=== PATIENT | female | born 1980 | race Caucasian/White ===

== ENCOUNTER 2020-07-21 11:51 | Outpatient (CLI) | payer OTHER, SELFPAY ==
[2020-07-21 12:07] LABS: Basophils Absolute Auto 0.04 K/mm3 (0.00-0.10); Basophils Percent Auto 0.4 % (0.0-1.0); Eosinophils Absolute Auto 0.33 K/mm3 (0.02-0.50); Eosinophils Percent Auto 3.7 % (1.0-6.0); Hematocrit 41.2 % (35.0-49.0); Hemoglobin 13.9 g/dL (12.0-15.0); Immature Granulocyte Absolute 0.03 K/mm3 (0.00-0.00); Immature Granulocyte Percent A 0.3 % (0.0-0.0); Lymphocytes Absolute Auto 2.14 K/mm3 (1.10-4.50); Mean Corpuscular HGB Conc 33.7 g/dL (32.0-36.0); Mean Corpuscular Hemoglobin 30.9 pg (27.0-31.0); Mean Corpuscular Volume 91.6 fL (78.0-102.0); Mean Platelet Volume 9.3 fl (9.2-11.8); Monocytes Absolute Auto 0.54 K/mm3 (0.10-0.90); Neutrophils Absolute Auto 5.9 K/mm3 (1.7-7.2); Neutrophils Percent Auto 65.6 % (50.0-70.0); Platelet Count Result 247 K/mm3 (150-420); Red Cell Distribution Width 11.9 % (11.6-14.4); White Blood Count 8.9 K/mm3 (4.8-10.8)
[2020-07-21 12:08] LABS: Add Urine Microscopic? NO; Appearance Urine Clear (Clear); Bilirubin Urine Negative (Negative); Blood Urine Negative (Negative); Color Urine Yellow (Yellow); Glucose Urine UA Negative (Negative); Ketones Urine Negative (Negative); Leukocyte Esterase Ur Negative (Negative); Nitrate Urine Negative (Negative); Protein Urine Negative (Negative); Specific Grav Ur 1.025 (1.010-1.020); Urobilinogen Urine 0.2 mg/dL (0.2-1.0)
[2020-07-21 13:08] LABS: Erythrocyte Sedimentation Rate 18 mm/hr (0-15)
[2020-07-21 13:31] LABS: Alanine Aminotransferase 30 U/L (14-59); Albumin Level 4.2 g/dL (3.4-5.0); Alkaline Phosphatase 88 U/L (46-116); Anion Gap 10 mmol/L (8-16); Aspartate Amino Transferase 14 U/L (15-37); Bilirubin,Total 0.2 mg/dL (0.00-1.00); Blood Urea Nitrogen 9 mg/dL (7-18); Calcium 9.1 mg/dL (8.5-10.1); Carbon Dioxide 26 mmol/L (21-32); Chloride 102 mmol/L (98-108); Cholesterol 165 mg/dL (0-200); Estimated Glomerular Filt Rate > 60; Ferritin 188 ng/mL (8-252); Free T4 Free Thyroxine 1.05 ng/dL (0.76-1.46); Glucose 95 mg/dL (70-99); HDL Direct 36 mg/dL (40-60); Iron 65 ug/dL (50-170); LDL Cholesterol Calculated 103 mg/dL (<130); Osmolality Calculated 284 mOsm/kg (285-295); Percent Iron Saturation 22 % (12-57); Potassium 4.2 mmol/L (3.5-5.1); Sodium 138 mmol/L (136-145); Total Protein 7.3 g/dL (6.4-8.2); Triglycerides 130 mg/dL (0-150)
== END 2020-07-21 11:52 | disposition home or self-care (01) ==
LOC: CHSLAB 11:54
PROVIDERS: PCP Internal Medicine; Visit Provider Internal Medicine
DX: R10.32 Left lower quadrant pain (principal); Z00.00 Encounter for general adult medical examination without abnormal findings; K92.1 Melena
CPT/HCPCS: 36415; 80053; 80061; 81003; 82728; 83540; 83550; 84439; 84443; 85025; 85652

== ENCOUNTER 2020-07-22 07:31 | Outpatient (CLI) | payer OTHER, SELFPAY ==
--- NOTE | ~2020-07-22 | CT_ITS ---
EXAMINATION: CT abdomen pelvis w con DATE: 07/22/2020 08:05 INDICATION: Left lower quadrant pain for one week TECHNIQUE: Computed tomography (CT) of the abdomen and pelvis was performed with 100 cc Omnipaque 350 intravenous contrast. The dose-length product was 696.04 mGy-cm. Automated exposure control and iter ative reconstruction technique were employed. COMPARISON: None. FINDINGS: There is right middle lobe atelectasis. Heart size normal. No significant pleural or perica rdial effusion. Gallbladder is present. The liver, spleen, adrenal glands and kidneys are unremarkabl e. There is a fat-containing umbilical hernia. Bowel pattern is nonobstructive. IUD present in the en dometrium. Trace free fluid in the pelvis. Normal appendix. No evidence for diverticulitis. No free a ir. There is disc narrowing and endplate degenerative change at L5-S1. IMPRESSION: 1. No acute abdominal abnormality. 2: Fat-containing umbilical hernia. Reviewed, dictated and finalized at location A. STANT STORE MANAGER TRAINEE
== END 2020-07-22 07:32 | disposition home or self-care (01) ==
LOC: CHSIMG 07:33
PROVIDERS: PCP Internal Medicine; Visit Provider Internal Medicine
DX: K92.1 Melena (principal); R10.32 Left lower quadrant pain
CPT/HCPCS: 74177; Q9965

== ENCOUNTER 2020-07-27 12:07 | Outpatient (CLI) | payer OTHER, SELFPAY ==
[2020-07-27 13:28] LABS: SARS-CoV-2 Ag Positive (Negative)
== END 2020-07-27 12:08 | disposition home or self-care (01) ==
LOC: CHSLAB 12:10
PROVIDERS: PCP Internal Medicine; Visit Provider Internal Medicine
DX: U07.1 COVID-19 (principal)
CPT/HCPCS: 87426

== ENCOUNTER 2021-05-26 16:03 | Outpatient (RCR) | payer OTHER, SELFPAY ==
--- NOTE | 2021-05-26 16:51 | PTOPEVAL ---
Thank you for referring Melanie Figueroa to [facility].? The patient is scheduled to be seen for therapy? __2__x/week for 12 visits. Please review, sign, date and return this plan of care PETE. I agree with and certify that the following plan of care is medically necessary. Referring Physician Date Admitting Provider: Attending Provider: Karen Casiano MD Referring Provider: *PT Outpatient Evaluation Start: 05/26/21 16:12 Freq: Status: Active Protocol: Document 05/26/21 16:12 ISIDRA (Rec: 05/26/21 16:50 ISIDRA [id number]) Therapy Assessment Status Assessment Status Assessment Status Evaluation Outpatient Past Medical History Neurological History Hx Other Neurological Disorders Yes: MENINGITIS Other History Hx Other Medical Conditions Yes: EHRLICHIOSIS Evaluation Information Problem Diagnosis acute low back pain Onset 05/21/21 Subjective Information Pt. reports she developed low Query Text:As Reported By Patient/ back pain around the 05/21/21. Family She states that she was running after her son and placed weight on the right leg and had immediate back pain. Pt. reports that she recieved a shot from the doctor and did 2 day of prednisone to reduce pain. Pt. reports pain is noticable with sitting in the car or laying in bed. she reports pain is eased with walking. She reports that she has returned to work. She reports that her goal is to decrease her back pain. Pain Assessment Timing of Pain Assessment Timing of Pain Assessment Pre-Treatment Pain Scale Pain Scale Used Numeric (1 - 10) Self Report Pain Assessment Right Lower Back Reported Pain Level 2 Pain Description Aching Pain Frequency Intermittent Lowest Pain Intensity 0 Greatest Pain Intensity 10 Pain Aggravating Factors Prolonged Position,Sitting Pain Score Pain Score 2: Self Report Interventions Used Interventions Used By Clinicians Electrical Stimulation, Exercise,Heat Cervical and Lumbar ROM Lumbar ROM Lumbar Flexion Active Floor Query Text:Hands to: Lumbar Extension (0-40) 25 Query Text:Active in Degrees Lumbar Lateral Flexion Right (0-40) 35 Query Text:Active in Degrees Lumbar Lateral Flexion Left (0-40) 35 Quer
== END 2021-06-28 23:59 | disposition home or self-care (01) ==
LOC: CHSPT 16:03
PROVIDERS: PCP Internal Medicine; Visit Provider Internal Medicine
DX: M54.5 Low back pain (principal)
CPT/HCPCS: 97014; 97110; 97161; G0283

== ENCOUNTER 2021-12-20 09:17 | Outpatient (CLI) | payer OTHER, SELFPAY ==
--- NOTE | ~2021-12-20 | XR_ITS ---
XR foot RT min 3V DATE: 12/20/2021 13:52 INDICATION: Foot pain, plantar fasciitis 2 months TECHNIQUE: Standing three-view examination COMPARISON: None FINDINGS: No fracture or dislocation, periosteal reaction or bone destruction. Joint spaces are well preserved. Mild plantar calcaneal enthesopathy. No associated periostitis or erosive change. IMPRESSION: Mild plantar calcaneal enthesopathy Reviewed, dictated and finalized at location A.
--- NOTE | ~2021-12-20 | XR_ITS ---
XR foot LT min 3V DATE: 12/20/2021 13:52 INDICATION: Plantar fasciitis, pain TECHNIQUE: Standing three-view examination COMPARISON: None FINDINGS: No fracture or dislocation, periosteal reaction or bone destruction, erosive change. IMPRESSION: Negative Reviewed, dictated and finalized at location A. IMPRESSION: Negative
== END 2021-12-20 09:18 | disposition home or self-care (01) ==
LOC: CHSIMG 09:19
PROVIDERS: PCP Internal Medicine; Visit Provider Podiatrist
DX: M72.2 Plantar fascial fibromatosis (principal)
CPT/HCPCS: 73630

== ENCOUNTER 2022-11-04 07:56 | Outpatient (CLI) | payer OTHER, SELFPAY ==
[2022-11-04 08:37] LABS: Basophils Absolute Auto 0.06 K/mm3 (0.00-0.10); Eosinophils Absolute Auto 0.28 K/mm3 (0.02-0.50); Eosinophils Percent Auto 4.8 % (1.0-6.0); Hematocrit 42.3 % (35.0-49.0); Immature Granulocyte Absolute 0.01 K/mm3 (0.00-0.00); Immature Granulocyte Percent A 0.2 % (0.0-0.0); Lymphocytes Absolute Auto 2.03 K/mm3 (1.10-4.50); Lymphocytes Percent Auto 35.1 % (18.0-42.0); Mean Corpuscular HGB Conc 33.1 g/dL (32.0-36.0); Mean Corpuscular Hemoglobin 30.7 pg (27.0-31.0); Mean Corpuscular Volume 92.8 fL (78.0-102.0); Mean Platelet Volume 9.6 fl (9.2-11.8); Monocytes Absolute Auto 0.45 K/mm3 (0.10-0.90); Monocytes Percent Auto 7.8 % (2.0-11.0); Neutrophils Percent Auto 51.1 % (50.0-70.0); Platelet Count Result 246 K/mm3 (150-420); Red Blood Count 4.56 M/mm3 (4.20-5.40); Red Cell Distribution Width 12.2 % (11.6-14.4); White Blood Count 5.8 K/mm3 (4.8-10.8)
[2022-11-04 09:20] LABS: Alanine Aminotransferase 21 U/L (14-59); Alkaline Phosphatase 83 U/L (46-116); Anion Gap 6 mmol/L (8-16); Aspartate Amino Transferase 18 U/L (15-37); Bilirubin,Total 0.4 mg/dL (0.00-1.00); Blood Urea Nitrogen 13 mg/dL (7-18); Calcium 8.9 mg/dL (8.5-10.1); Carbon Dioxide 30 mmol/L (21-32); Chloride 104 mmol/L (98-108); Cholesterol 169 mg/dL (0-200); Estimated Glomerular Filt Rate > 60; Glucose 104 mg/dL (70-99); HDL Direct 40 mg/dL (40-60); LDL Cholesterol Calculated 108 mg/dL (<130); Osmolality Calculated 290 mOsm/kg (285-295); Potassium 4.4 mmol/L (3.5-5.1); Sodium 140 mmol/L (136-145); Total Protein 7.1 g/dL (6.4-8.2); Triglycerides 104 mg/dL (0-150)
== END 2022-11-04 07:57 | disposition home or self-care (01) ==
PROVIDERS: PCP Internal Medicine
DX: Z13.9 Encounter for screening, unspecified (principal)
CPT/HCPCS: 36415; 80053; 80061; 84443; 85025

== ENCOUNTER 2024-05-16 08:33 | Outpatient (CLI) | payer OTHER, SELFPAY ==
[2024-05-16 08:52] LABS: Hematocrit 40.6 % (35.0-49.0); Mean Corpuscular HGB Conc 34.5 g/dL (32-36); Mean Platelet Volume 9.2 fl (9.2-11.8); Platelet Count Result 231 K/mm3 (150-420); Red Blood Count 4.51 M/mm3 (4.20-5.40); Red Cell Distribution Width 12.5 % (11.6-14.4); White Blood Count 6.6 K/mm3 (4.8-10.8)
[2024-05-16 08:58] LABS: Creatinine Urine 217.27 mg/dL (40-278); MALB Creatinine Ratio 6.5 mg/g (0-30); Microalbumin Urine Random 14.3 mg/L
[2024-05-16 09:01] LABS: Hemoglobin A1C 5.1 % (<5.7)
[2024-05-16 09:33] LABS: Anion Gap 9 mmol/L (4-12); Blood Urea Nitrogen 12 mg/dL (7-18); Calcium 8.7 mg/dL (8.5-10.1); Carbon Dioxide 27 mmol/L (21-32); Chloride 101 mmol/L (98-108); Estimated Glomerular Filt Rate > 60; Glucose 106 mg/dL (70-99); Osmolality Calculated 283 mOsm/kg (285-295); Potassium 4.3 mmol/L (3.5-5.1); Sodium 137 mmol/L (136-145)
[2024-05-16 09:34] LABS: Alanine Aminotransferase 34 U/L (14-59); Albumin Level 3.9 g/dL (3.4-5.0); Alkaline Phosphatase 86 U/L (46-116); Aspartate Amino Transferase 20 U/L (15-37); Bilirubin,Total 0.4 mg/dL (0.00-1.00); Cholesterol 193 mg/dL (0-200); Free T3 3.22 pg/mL (2.18-3.98); Free T4 Free Thyroxine 0.98 ng/dL (0.76-1.46); HDL Direct 39 mg/dL (40-60); LDL Cholesterol Calculated 128 mg/dL (<130); Thyroid Stimulating Hormone 0.74 uIU/mL (0.36-3.74); Total Protein 6.7 g/dL (6.4-8.2); Triglycerides 130 mg/dL (0-150)
== END 2024-05-16 08:34 | disposition home or self-care (01) ==
LOC: CHSLAB 08:36
DX: Z00.00 Encounter for general adult medical examination without abnormal findings (principal); R63.5 Abnormal weight gain; F41.1 Generalized anxiety disorder; R73.03 Prediabetes
CPT/HCPCS: 36415; 80053; 80061; 82043; 83036; 84439; 84443; 84481; 85027

== ENCOUNTER 2025-07-01 07:41 | Outpatient (CLI) | payer OTHER, SELFPAY ==
--- OUTSIDE RECORDS SUMMARY | 1999-09-01 07:00 | XMS_ITS | Continuity of Care Document ---
Author Organization [facility] Address [address] [place] [address] Phone Care Team Providers Care Geologist Name Role Phone Kaila Kapoor Unavailable Unavailable Advance Directives Directive Yes / No Effective Date File Name No Information Encounters Encounter Description Practice Location Reason(s) For Visit Diagnoses Date Provider Providers Copied on Encounter [facility], [address], [place], [place], [id number], [place] tel:[phone] [facility] No Information [phone] Emelia Bright. [address] , [address], [place], [address], [place]. tel:[phone] Family History Family Member Type Diagnosis Age At Onset No Information Payers Payer name Insurance type Covered green party ID Authoriza tion(s) No Information Social History Type Description Quantity Date Captured Comments Sex Female Smoking Status No Information Chief Complaint And Reason For Visit No Information Reason For Referral Reason For Referral No Information History Of Present Illness Encounter Date Complaint History Of Prese nt Illness No Information Functional Status Date Functional Assessmen t No Information Instructions Date Instruction Additional Infor mation No Information Assessments Type Assessment Date No Information Patient Care Teams Name Effective Dates (start - stop) Status Members No Information
--- OUTSIDE RECORDS SUMMARY | 2015-12-30 02:35 | XMS_ITS | Continuity of Care Document ---
Author Organization [facility] Address [address] [place] [address] Phone Care Team Providers Care Recycling Coordinator Name Role Phone Marc Drew MD Unavailable Unavailable Allergies, Adverse Reactions, Alerts Substance Reaction Status Criticality No Known Allergies Active No Inform ation Medications Medication Instructions Dosage Effective Dates (start - stop) Status Comments Percocet 5 mg-325 mg tablet take 1 tablet by oral route every 6 hours as needed 1.00 tablet - Active Compound Medication - Orthopedics TOPICAL CREAM (G) (P34X) Apply 1-2gms to the affected area 3-4x daily. Rub in well for 1-2min - Active Ketamine 10%, Meloxicam 1%, Baclofen 2%, Bupivacaine 1%, Clonidine 0.2%, Cyclobenzaprine 2%, Gabapentin 6% VITAMIN D3 (unknown strength) Not Available - Active Percocet 5 mg-325 mg tablet take 1 tablet by oral route every 6 hours as needed 1.00 tablet - No Longer Active Compound Medication - Orthopedics TOPICAL CREAM (G) (P34X) Apply 1-2gms to the affected area 3-4x daily. Rub in well for 1-2min - No Longer Active Ketamine 10%, Meloxicam 1%, Baclofen 2%, Bupivacaine 1%, Clonidine 0.2%, Cyclobenzaprine 2%, Gabapentin 6% Procedures Procedure Date OFFICE/OUTPATIENT VISIT EST OFFICE/OUTPATIENT VISIT EST OFFICE CONSULTATION Advance Directives Directive Yes / No Effective Date File Name No Information Encounters Encounter Description Practice Location Reason(s) For Visit Diagnoses Date Provider Providers Copied on Encounter OFFICE/OUTPAT IENT VISIT EST [facility], [address] [place] [address], [address], [place] [phone] [facility] Pain of left sacroiliac joint [phone] Rajendra Tran. [address] [place] [address], [id number] . tel: [phone] OFFICE/OUTPAT IENT VISIT EST [facility], [address] [place] [address], [address], [place] [phone] [facility] Lumbosacral spondylosisL ow back painDisplace ment of lumbar intervertebr al discSacroili itis - 5 Rajendra Tran. [address] [place] [address], [id number] . tel: [phone] Referring Provider: Marc Drew, [address] [place] [address], [address] . tel:[phone] [facility], [address] [place] [address], [address], [place] [phone] [facility] 2- 5 Rajendra Tran. [address] [place] [address], [id number] . tel: [phone] OFFICE CONSULTATION [facility], [address] [place] [address], [address], [place] [phone] [facility] LOW BACK PAIN (chief complaint)IN CREASED PAIN WHEN MOVING L LEG (chief complaint)NO NUMBNESS (chief complaint)NO FILMS (chief complaint)NO PREVIOUS THERAPY - HAS TRIED CHIROPRACTOR (chief complaint) Low back painSacroili itis 5 Rajendra Tran. [address] [place] [address], [id number] . tel: [phone] Referring Provider: Brain Tran, Romeo [address] , [place], [address]. tel:[phone] Family History Family Member Type Diagnosis Age At Onset Mother Problem (finding) hypertension Payers Payer name Insurance type Covered alliance party ID Authoraddiea tisavannah(s) Blue Access Choice PPO [id number] Social History Type Description Quantity Date Captured Comments Alcohol Use Details Unknown Caffeine Use Details Unknown Tobacco Use Status No Information Smoking Status No Information Sex Female Chief Complaint And Reason For Visit No Information Reason For Referral Reason For Referral No Information Plan Of Treatment Date Type Action Status Referral Ordered: MRI SPI CANAL&CNTS LMBR C-MATRL spine, lumbar Appointment date/timeframe: 01/30/2015 ordered History Of Present Illness Encounter Date Complaint History Of Prese nt Illness LOW BACK PAIN INCREASED PAIN WHEN MOVING L LEG NO NUMBNESS NO FILMS NO PREVIOUS THERAPY - HAS TRIED CHIROPRACTOR Functional Status Date Functional Assessmen t No Information Instructions Date Instruction Additional Infor mation No Information Assessments Type Assessment Date assessment Pain of left sacroiliac joint Ma Patient Care Teams Name Effective Dates (start - stop) Status Members No Information
--- OUTSIDE RECORDS SUMMARY | 2025-07-01 07:46 | XMS_ITS | Clinical Summary ---
Author Organization [facility] Address [address] [place] [address] Phone Care Team Providers Care Hydraulic Bull Riveter Operator Name Role Phone Cam Martel MD Primary Care Provider [phone] Allergies No known active allergies Medications multivitamin (DAILY-NORRIS) tablet Take 1 Tablet by mouth daily. Active fexofenadine (WILFRIDO) 180 mg tablet Take 1 Tablet (180 mg) by mouth daily. 30 Tablet 11 08/03/20 17 Active EPINEPHrine (EPIPEN) 0.3 mg/0.3 mL Auto-Injector 05/09/20 17 Active Lactobac no.41/Bifidob act no.7 (PROBIOTIC-10 ORAL) Take by mouth. Activ e cyanocobalami n/mecobalamin (CYANOCOBALAM IN-METHYLCOBA FALLON SUBLINGUAL) Place under tongue. Active MILK THISTLE ORAL Take by mouth. Activ e ubidecarenone (COENZYME Q10 ORAL) Take by mouth. Activ e fluticasone propionate (FLONASE) 50 mcg/spray [place], Suspension nasal inhaler Administer 2 Sprays in each nostril daily. shake before using 48 Gram 3 12/17/19 23 Active Adapalene 0.3 % Gel Apply to affected area 1 time daily as needed (face spots). 45 Gram 3 12/17/19 23 Active buPROPion HCL (Wellbutrin XL) 150 mg Extended Release 24 hour tabletIndicat ions:Moderate episode of recurrent major depressive disorder (CMS/HCC) Take 1 Tablet (150 mg) by mouth daily in the morning. 30 Tablet 6 05/21/20 25 Active ALPRAZolam (XANAX) 0.25 mg tabletIndicat ions:Generali zed anxiety disorder Take 1 Tablet (0.25 mg) by mouth 2 times daily. 50 Tablet 2 05/21/20 25 Active tirzepatide, weight loss, (Zepbound) 2.5 mg/0.5 mL Solution Inject 0.5 mL (2.5 mg) by subcutaneous injection every 7 days. 2 mL 1 06/13/20 25 Active semaglutide, weight loss, (WEGOVY) 0.25 mg/0.5 mL Pen InjectorIndic ations:Low HDL (under 40),Obesity (BMI 30.0-34.9) Inject 0.5 mL (0.25 mg) by subcutaneous injection every 7 days. 2 mL 1 05/21/20 25 025 Discontinued tirzepatide, weight loss, (Zepbound) 2.5 mg/0.5 mL Pen InjectorIndic ations:Obesit y (BMI 30.0-34.9) Inject 0.5 mL (2.5 mg) by subcutaneous injection every 7 days. 2 mL 2 06/04/20 25 025 Discontinued(F ormulary Change) Active Problems Patient Care Coordination No te Formatting of this note migh t be different from the original. DIGITAL CAMERA TECHNICIAN: DR. Julien Green @ [facility] Problem Noted Date Diagnosed Date Moderate episode of recurrent major depressive d isorder 05/21/2025 Low HDL (under 40) 02/25/2025 Obesity (BMI 30.0-34.9) 02/25/2025 Hemorrhoids 12/16/2022 Seasonal allergic rhinitis 12/16/2022 Generalized anxiety disorder 05/11/2016 Disc degeneration, lumbar 05/11/2016 Resolved Problems Problem Noted Date Diagnosed Date Resolved Date Headache(784.0) 01/19/2012 08/16/2012 Elevated LFTs 01/19/2012 08/16/2012 Thrombocytopenia 01/19/2012 08/16/2012 Ehrlichiosis 01/19/2012 08/16/2012 Encounters Date Type Department Care Team Description 06/17/2025 External Device Data STL ABSTRACTION Provider, Abstract 05/21/2025 3:30 PM CDT Office Visit [facility] Internal Medicine Robert Sampson [address] [place] [address] Cam Martel MD Annual physical exam (Primary Dx); Low HDL (under 40); Generalized anxiety disorder; Obesity (BMI 30.0-34.9); Moderate episode of recurrent major depressive disorder (CMS/HCC); Screening for diabetes mellitus (DM) 05/13/2025 External Device Data STL ABSTRACTION Provider, Abstract 05/08/2025 Orders Only [facility] [address] [place] [address] Rajiv Dolan MD 05/08/2025 Abstract [facility] [address] [place] [address] Cam Martel MD 04/24/2025 Abstract [facility] [address] [place] [address] Cam Martel MD 04/24/2025 Abstract [facility] [address] [place] [address] Cam Martel MD 04/01/2025 External Device Data STL ABSTRACTION Provider, Abstract from Last 3 Months Immunizations Immunization Administration Dates Next Due (ADACEL/BOOSTRIX)(10 YR UP) TDAP VACCINE, 0.5ML, IM 08/16/2012 INFLUENZA VACCINE QUADRIVALE NT 6 MOS UP CELL DERIVED PF IM 06/14/2017 INFLUENZA VACCINE QUADRIVALENT 6 MOS UP IM 07/16 INFLUENZA VACCINE QUADRIVALENT 6 MOS UP PF IM Influenza Seasonal Unspecified Formulation IM ,06/29/2016 Influenza Seasonal Unspecified Formulation PF IM 06/01/2015 Family History Medical History Relation Name Comments Heart Disease Father Breast Cancer Mother Hypertension Mother Other Mother Uterine CA Relation Name Status Comments Father Alive Mother Alive Social History Tobacco Use Types Packs/Day Years Used Date Smoking Tobacco: Former Smokeless Tobacco: Never Alcohol Use Standard Drinks/Week Comments Yes 0 (1 standard drink = 0.6 oz pur e alcohol) occassional Comments No Sex and Gender Information Value Date Recorded Sex Assigned at Not on file 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 Gender Identity Not on file Sexual Orientation Not on file Occupation Industry Job Start Date Job End Date Not on file Not on file Not on file Not on file Last Filed Vital Signs Vital Sign Reading Time Taken Comments Blood Pressure 124/84 05/21/2025 3:29 PM CDT Pulse 78 05/21/2025 3:29 PM CDT Temperature 36.2 C (97.1 F) 05/21/2025 3:29 PM CDT Respiratory Rate 20 05/21/2025 3:29 PM CDT Oxygen Saturation 97% 05/21/2025 3:29 PM CDT Inhaled Oxygen Concentration - - Weight 99.8 kg (220 lb) 05/21/2025 3:29 PM CDT Height 170.2 cm (5' 7) 05/21/2025 3:29 PM CDT Body Mass Index 34.46 05/21/2025 3:29 PM CDT Plan of Treatment Upcoming Encounters Date Type Department Care Team (Late st Contact Info) Description 05/27/2026 3:30 PM CDT Office Visit [facility] Internal Medicine Robert Nitish [address] [place] [address] [place] [address] [place] [address] Health Maintenance Due Date Last Done Comments Pre-Diabetes and Diabetes Screening 1978 HEPATITIS B VACCINES (1 of 3 - 19+ 3-dose series) 1997 HPV/Cotest (21-29) 1999 HPV/Cotest (30-65) 2008 DTAP/TDAP/TD VACCINES (2 - Td or Tdap) 08/16/2022 08/16/2012 FIT-DNA Q 3 years 2023 FIT/FOBT Q 1 year 2023 Flex Sig/CT Colonography Q 5 years 2023 INFLUENZA VACCINE (#1) 2025 8, 05/29/2018, 06/14/2017, Additional history exists BREAST CANCER SCREENING 05/17/2025 05/17/20 24, 05/15/2024, 05/15/2024, Additional history exists CERVICAL CANCER SCREENING 06/13/2026 PAP SMEAR 06/13/2026 06/13/2023, 04/29, 04/28/2016 COLORECTAL SCREENING 04/11/2035 04/11/2025, 04/11/20 Colorectal Cancer Screening 04/11/2035 Preventative Visit- Commercial Completed 05/21/2025, 07/02/2024, 05/15/2024, Additional history exists HPV VACCINES Aged Out No longer eligi ble based on patient's age to complete this topic Procedures Procedure Name Priority Date/Time Associated Diagnosis Comments AMB REFERRAL TO GASTROENTEROLOGY Routine 04/11/2025 11:27 AM CDT MAMMO 3D LEANDRA DIAGNOSTIC BILAT W OR WO CAD Routine 05/17/2024 1:04 PM CDT from Last 3 Months or Most Recently Relevant to Health Maintenance Results * AMB REFERRAL TO GASTROENTEROLOGY (04/11/2025 11:27 AM CDT) us Rajiv Dolan MD OUTPATIENT REFERRALS Kajal l Result [facility]# [id number] [address] [address] * MAMMO 3D LEANDRA DIAGNOSTIC BILAT W OR WO CAD (05/17/2024 1:04 PM CDT) Anatomical Region Laterality Modality Breast Bilateral Mammography us Abstract Provider MAMMO ORDERABLES Edited Result - Final from Last 3 Months or Most Recently Relevant to Health Maintenance Insurance CHOICE [id number] Care Teams Hydraulic Bull Riveter Operator Relationship Specialty Start Date End Date Cam Martel MD PCP - General Internal Medicine 04/11/16
--- OUTSIDE RECORDS SUMMARY | 2025-07-01 07:46 | XMS_ITS | Clinical Summary ---
Author Organization [facility] Address [address] [place] [address] Care Team Providers Care Assembler Faucets Name Role Phone Esther Montgomery RN Unavailable Unavailable Cam Martel MD Primary Care Provider Allergies No known active allergies Medications fexofenadine (WILFRIDO) 180 mg tablet Take 1 tablet (180 mg total) by mouth daily Active fluticasone propionate (FLONASE) 50 mcg/actuation nasal spray Administer 1 spray into each nostril daily Active levonorgestreL (LILETTA) 20.4 mcg/24 hr (8 yrs) 52 mg IUD 1 each by intrauterine route once 7 Active sodium, potassium & mag sulfates (Suprep Bowel Prep Kit) 17.5-3.13-1.6 gram recon solnIndications :Bowel Evacuation Drink first half of prep at 6:00 pm the night before procedure. Drink second half of prep 4 hours prior to leaving home for procedure. 354 mL 5 Active sod sulf-pot chloride-mag sulf 1.479-0.188- 0.225 gram tabletIndicatio ns:Bowel Evacuation Take first dose evening prior to exam and repeat morning of exam as instructed 24 tablet 5 Active capsaicin (ZOSTRIX) 0.075 % topical cream Apply topically 3 (three) times a day Active ALPRAZolam (XANAX) 0.25 mg tablet Take 1 tablet (0.25 mg total) by mouth 2 (two) times a day as needed for anxiety Active Hospital, Clinic, or Other Facility Administered Medication Ordered Dose Route Frequency Start Date End Date Status levonorgestreL (LILETTA) 20.4 mcg/24 hr (8 yrs) 52 mg IUD 1 eachIndications:Pre gnancy Contraception 1 each intrauterine Continuous (implanted device) 02/25/2025 Active Active Problems Problem Noted Date Diagnosed Date Screen for colon cancer 12/27/2024 Rectal bleeding 10/16/2024 At high risk for breast cancer 11/23/2022 Encounters Date Type Department Care Team Description 04/11/2025 10:08 AM CDT Anesthesia Event [facility] [address] [place] [phone] Shaw Beyer MD 04/11/2025 10:00 AM CDT - 04/11/2025 10:45 AM CDT Surgery [facility] [address] [place] [phone] Rajiv Dolan MD COLON BIOPSY 04/11/2025 9:00 AM CDT - 04/11/2025 11:53 AM CDT Hospital Encounter [facility] [address] [place] [phone] Rajiv Dolan MD Screen for colon cancer Discharge Disposition: Discharge to home or self care from Last 3 Months Surgical History Surgery Date Site/Laterality Comments HEMORROIDECTOMY 1996 SINUS ANTRAL LAVAGE 2016 Medical History Medical History Date Comments Anxiety Chronic constipation Family History Medical History Relation Name Comments Breast cancer Daughter No Known Problems Father Breast cancer Father's Sister Breast cancer Mother Cancer Mother Ovarian cancer Mother Colon cancer Neg Hx Colon polyps Neg Hx Relation Name Status Comments Daughter Father Father's Sister Mother Social History Tobacco Use Types Packs/Day Years Used Date Smoking Tobacco: Never Smokeless Tobacco: Never Tobacco Cessation:Counseling Given: Not Answered Alcohol Use Standard Drinks/Week Comments Yes 2 (1 standard drink = 0.6 oz pur e alcohol) AUDIT-C Answer Date Recorded Q1: How often do you have a drink containing alc ohol? 2-3 times a week 04/10/2025 Q2: How many drinks containi ng alcohol do you have on a typical day when you are drinking? 1 or 2 04/10/2025 Q3: How often do you have si x or more drinks on one occasion? Never 04/10/2025 Personal Safety Answer Date Recorded Have you ever been in or are you currently in a harmful physical or emotional relationship or is someone making you feel afraid or unsafe? Denies 04/11/2025 Comments No Sex and Gender Information Value Date Recorded Sex Assigned at Not on file Legal Sex Female 10:36 AM L D RN Gender Identity Not on file Sexual Orientation Not on file Obstetrics History Para Term AB IAB SAB Ectopic Multiple Livin g Live Births 1 1 1 1 1 Date Outcome GA Total Labor Labor//3rd Weight Sex Type Anes PTL Arabella A1 A5 Name Clin 2013 Term M Vaginal Livin g Connie Last Filed Vital Signs Vital Sign Reading Time Taken Comments Blood Pressure 128/93 04/11/2025 11:15 AM CDT Pulse 80 04/11/2025 11:15 AM CDT Temperature 36.5 C (97.7 F) 04/11/2025 10:45 AM CDT Respiratory Rate 14 04/11/2025 11:15 AM CDT Oxygen Saturation 99% 04/11/2025 11:15 AM CDT Inhaled Oxygen Concentration - - Weight 95.3 kg (210 lb) 04/11/2025 9:21 AM CDT Height 170.2 cm (5' 7) 04/11/2025 9:21 AM CDT Body Mass Index 32.89 04/11/2025 9:21 AM CDT Plan of Treatment Health Maintenance Due Date Last Done Comments Cervical Cancer Screening 1980 Depression Screening 1980 Hepatitis C Screening 1978 Hepatitis B Screening 1996 DTaP/Tdap/Td Vaccine (6 - Td or Tdap) 08/16/2022 08/16/2012, 03/10/1993, 05/30/1984, Additional history exists Influenza Vaccine (#1) 2025 8, 06/14/2017, 06/29/2016, Additional history exists Breast Cancer Screening-Mammogram 05/17/2025 05/17/2024, 05/15/2024, 11/23/2022, Additional history exists Regular Well Visit/Exam 18-64 07/02/2025 07/02/2024 Colon Cancer Screening-Colonoscopy 04/11/2035 04/11/2025 HPV Vaccines Aged Out No longer eligi ble based on patient's age to complete this topic Pneumococcal vaccine <65 Aged Out No longer eligible based on patient's age to complete this topic Procedures Procedure Name Priority Date/Time Associated Diagnosis Comments SURGICAL PATHOLOGY Routine 04/11/2025 10 :39 AM CDT Screen for colon cancer COLON BIOPSY 04/11/2025 10:08 AM CDT Screen for colon cancer COLONOSCOPY 04/11/2025 9:55 AM CDT POCT HCG, URINE Routine 04/11/2025 9:15 AM CDT SCREENING MAMMOGRAM BILATERAL W EULOGIO Schedule Routine, Read Routine (OP Routine) 05/15/2024 7:33 AM CDT Screening mammogram, encounter for from Last 3 Months or Most Recently Relevant to Health Maintenance Results * Surgical pathology (04/11/2025 10:39 AM CDT) Tissue (Polyp(s), colon/colorectal, esophageal, gastric) 04/11/2025 10:39 AM CDT Narrative PATHOLOGY [facility] - 04/14/2025 12:16 PM CDT [address] [address] Tele: Susana Ya MD - Vessel Manager Note to Patients: This report may contain a detailed description of human tissue sent by a health care provider to the laboratory for pathologic evaluation. The content of this report is essential for diagnosis and may provide important critical findings. This information may be unfamiliar to patients to review without a medical professional present. It is advised that the patient review this report in the presence of a health care provider who can answer questions and explain the details. SURGICAL PATHOLOGY REPORT Patient Name: MELANIE WILLETT Address: [address] [place] [address]- Gender: F : 1980 (Age: 44) Service: Surgery Location: [facility], Hospital #: [id number] Patient Type: [facility] SAME DAY SURGERY Taken: 04/11/2025 Received 04/11/2025 Reported: 04/14/2025 Physician(s): Rajiv Dolan M.D. Dr. Cam Martel M.D. DIAGNOSIS: Colon, sigmoid, distal-biopsy: - Hyperplastic polyp esb/04/14/2025 12:16 Examining Pathologist: Melvin Becker M.D. Report Reviewed and Electronically Signed By Melvin Becker M.D. SPECIMEN TYPE: A: DISTAL SIGMOID POLYP CLINICAL IMPRESSION AND HISTORY: Screening for colorectal malignant neoplasm. A 3 mm polyp was found in the distal sigmoid colon. GROSS DESCRIPTION: Received in formalin labeled [facility] and distal sigmoid polyp is a 0.2 x 0.2 x 0.1 cm mccarty tissue fragment. The specimen is filtered and entirely submitted in A1. jxi/04/11/2025 12:40 DMS,JXI MICROSCOPIC DESCRIPTION: Focal hyperplastic mucosal change is seen. No high-grade dysplasia or invasive tumor is identified. Clerical Data Follows A; [id number] REPORT IMAGES AND/OR SCANNED DOCUMENTS ONLY VIEWABLE IN PDF FORMAT The immunohistochemical test(s) cited in this report, if any, was developed and its performance characteristics determined by [facility] Pathology Department. It has not been cleared or approved by the U.S. Food and Drug Administration. The FDA has determined that such clearance or approval is not necessary. This test is used for clinical purposes. It should not be regarded as investigational or for research. [facility] is certified under the Clinical Laboratory Improvement Amendments of 1988 (CLIA) as qualified to perform high complexity testing. Immunostains were performed on formalin-fixed paraffin embedded tissue using a polymer diaminobenzidine chromogen detection system. Antibodies used may include clone SP1 (rabbit monoclonal, estrogen receptor), clone 1E2 (rabbit monoclonal progesterone receptor), Ki-67 (rabbit monoclonal, 30-9), CD117 (rabbit polyclonal, c-kit), and anti-Her-2/kole (4B5) (rabbit monoclonal primary antibody). In the event that immunohistochemistry or special stains have been performed, attending physician has confirmed appropriateness of controls. Frozen section, operating room consultation, gross examination and dissection, and case sign out may have been performed in part or completely in the following laboratories: [facility], [address] [facility], [place], [place] [address] [place] [address], [address], [place] [address]. us Rajiv Dolan MD LAB PATHOLOGY ORDERABLES Final Result PATHOLOGY [facility] Laboratory [facility] [place] [address] * Colonoscopy (04/11/2025 9:55 AM CDT) Anatomical Region Laterality Modality Other Narrative Procedure Note Rajiv Dolan MD - 04/11/2025 9:55 AM CDT ENDOSCOPY LAB Patient Name: Melanie Willett Procedure Date: 04/11/2025 9:55 AM Admit Type: Outpatient Room: [facility] Date of : 1980 Instrument Name: [id number] Gender: Female Note Status: Finalized Procedure: Colonoscopy Indications: Screening for colorectal malignant neoplasm Providers: Rajiv Dolan M.D. Referring MD: Cam Martel M.D. Medicines: See the Anesthesia note for documentation of the administered medications Complications: No immediate complications. Estimated blood loss: Minimal. Estimated Blood Loss: Estimated blood loss was minimal. Procedure: Pre-Anesthesia Assessment: - Prior to the procedure, a History and Physicalwas performed, and patient medications, allergies and sensitivities were reviewed. The patient'stolerance of previous anesthesia was reviewed. - The risks and benefits of the procedure and the sedation options and risks were discussed with the patient. All questions were answered and informed consent was obtained. The benefits, risks and alternatives of theprocedure and sedation were discussed and informed consentwas obtained. All questions were answered. Please referto the signed informed consent document in the medical record. The scope was passed under direct vision.The Colonoscope was introduced through the anus and advanced to the the cecum, identified byappendiceal orifice and ileocecal valve. The bowel preparation used was SUTAB via split dose instruction. Thequality of the bowel preparation was good. Bowel prep was administered using a split dose. Findings: Skin tags were found on perianal exam. The digital rectal exam was normal. Pertinent negatives include no palpable rectal lesions. The colon (entire examined portion) was significantly redundant. Advancing the scope required changing the patient to a supineposition. A 3 mm polyp was found in the distal sigmoid colon. The polyp was sessile. The polyp was removed with a jumbo cold forceps. Resectionand retrieval were complete. The exam was otherwise without abnormality on direct and retroflexion views. Impression: - Perianal skin tags found on perianal exam. - Redundant colon. - One 3 mm polyp in the distal sigmoid colon,removed with a jumbo cold forceps. Resected andretrieved. - The examination was otherwise normal on directand retroflexion views. Recommendation: - Repeat colonoscopy in 5 years for surveillancebased on pathology results. Electronically signed by Rajiv Dolan M.D. Rajiv Dolan M.D. 04/11/2025 10:49:36 AM Number of Addenda: 0 Note Initiated On: 04/11/2025 9:55 AM Scope Withdrawal Time: 0 hours 6 minutes 34 seconds Scope In: 10:21:22 AM Scope Out: 10:41:34 AM Rajiv Dolan MD ENDOSCOPY PROCEDURES Fin al Result * POCT hCG, urine (04/11/2025 9:15 AM CDT) HCG, ur, POC Negative Negative Lot Number [id number] QC Backgroud Clear Acceptable QC Control Line Acceptable Urine 04/11/2025 9:15 AM CDT Rajiv Dolan MD POINT OF CARE TEST ORDER BRANDON Final Result * Screening Mammogram Bilateral W Eulogio (05/15/2024 7:33 AM CDT) Anatomical Region Laterality Modality Breast Bilateral Mammography Narrative 05/17/2024 7:08 AM CDT Examination: Screening Mammogram Bilateral W Eulogio: 05/15/24 Clinical: Screening mammogram, encounter for. Prior Study Comparisons: Comparison was made to the prior available relevant studies at the time of interpretation. Findings: Screening Mammogram Bilateral W Eulogio Bilateral No significant masses, malignant type calcifications, skin thickening, nipple retraction, or significant lymphadenopathy is noted in either breast. Computer Aided Detection was utilized for the interpretation of this study. The breasts are heterogeneously dense, which may obscure small masses. The patient will be notified of results by letter. Impression: BI-RADS ATLAS category (overall): 2 - Benign There is no mammographic evidence of malignancy. Routine Screening Mammogram in 1 Yr is recommended for bilateral Overall Assessment: 2 - Benign Self Screening Mammogram IMG MAMMO PROCEDURES Fi nal Result from Last 3 Months or Most Recently Relevant to Health Maintenance Insurance [facility] PLUS [facility]PPO Address: [address] [place] [address] [facility] Address: [place] [address] [facility] H[facility]/PPO Address: [place] [address] [facility] H[facility]/PPO Address: [address] [address] [facility] H[facility]/PPO Address: [address] [address] Advance Directives For more information, please contact: [phone] * Full Code (Latest Code Status on File) Date Activated Date Inactivated Comments 04/11/2025 9:16 AM 04/11/2025 3:54 PM Care Teams Assembler Faucets Relationship Specialty [place] [address] [facility] [address] [phone] PCP - General Internal Medicine 09/01/23 Esther Montgomery, KARUNA [facility] Breast Risk Program Nurse 11/23/22
--- OUTSIDE RECORDS SUMMARY | 2025-07-01 07:46 | XMS_ITS | Encounter Summary ---
Author Organization [facility] Address [address] [place] [address] Care Team Providers Care Manager Managed Care Name Role Phone Cam Martel MD Primary Care Provider [phone] Reason for Visit * Reason Comments Medication Assistance Encounter Details Date Type Department Care Team (Late st Contact Info) Description 02/22/2024 Telephone [facility] Internal Medicine [email or web address] [place] [address] [place] [address] [address] [place] [address] Medication Assistance Social History Tobacco Use Types Packs/Day Years Used Date Smoking Tobacco: Former Smokeless Tobacco: Never Alcohol Use Standard Drinks/Week Comments Yes 0 (1 standard drink = 0.6 oz pur e alcohol) occassional Comments No Sex and Gender Information Value Date Recorded Sex Assigned at Not on file 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 Would like to have this refilled by then upon physicians return to office. 12:12 PM 02/22/2024 Date of last visit addressing condition(s) being treated: 12/16/2022 Appointments for Next 365 Days 02/22/2024 - 02/21/2025 Date Visit Type Length Department Provider 05/15/2024 9:00 AM PHYSICAL ESTABLISHED 30 min [facility] Internal Medicine Cam Zhou MD Appointment Notes: Physical Correct Pharmacy: Yes Bruna Augustine LPN * Telephone Encounter - Ines Agrawal PCT - 02/22/2024 11:39 AM CDT Copied from [facility] #[id number]. Topic: Medication Request >> Feb 22, 2024 11:38 AM Ines Loredo wrote: Caller is requesting: Medication Question from Patient (Not involving new prescription or refill) Caller: Melanie Figueroa Patient/Caregiver Callback Number: [phone] (home) [phone] (work) Medication (Ask patient/caregiver to spell if possible): ALPRAZolam (XANAX) 0.25 mg tablet Call Notes: Patient is flying and is wanting this medication refilled. Please advise. She made an appointment for April. [facility] [address] [address] documented in this encounter Plan of Treatment Upcoming Encounters Date Type Department Care Team (Late st Contact Info) Description 05/27/2026 3:30 PM CDT Office Visit [facility] Internal Medicine [address] [address] [facility] [address] [place] [address] [place] [address] [address] [place] [address] documented as of this encounter Visit Diagnoses Diagnosis Generalized anxiety disorder documented in this encounter Care Teams Manager Managed Care Relationship Specialty Start Date End Date Cam Martel MD PCP - General Internal Medicine 04/11/16 documented as of this encounter
--- OUTSIDE RECORDS SUMMARY | 2025-07-01 07:47 | XMS_ITS | Encounter Summary ---
Author Organization [facility] Address [address] [facility] [address] Care Team Providers Care Sap Ppm Consultant Name Role Phone Cam Martel MD Primary Care Provider [phone] Encounter Details Date Type Department Care Team (Late Contact Info) Description 04/24/2025 Abstract [facility] Internal Medicine [address] [place] [address] [place] [address] [address] [place] [address] Social History Tobacco Use Types Packs/Day Years Used Date Smoking Tobacco: Former Smokeless Tobacco: Never Alcohol Use Standard Drinks/Week Comments Yes 0 (1 standard drink = 0.6 oz pur e alcohol) occassional Comments No Sex and Gender Information Value Date Recorded Sex Assigned at Not on file Legal Sex Female 4:23 AM BENEFITS COUNSELOR Gender Identity Not on file Sexual Orientation Not on file Occupation Industry Job Start Date Job End Date Not on file Not on file Not on file Not on file documented as of this encounter Plan of Treatment Upcoming Encounters Date Type Department Care Team (Late Contact Info) Description 05/27/2026 3:30 PM CDT Office Visit [facility] [place] Internal Medicine [address]an Adri[address] [place] [address] [place] [address] [address] [place] [phone] documented as of this encounter Visit Diagnoses Not on filedocumented in this encounter Care Teams Sap Ppm Consultant Relationship Specialty Start Date End Date Cam Martel MD PCP - General Internal Medicine 04/11/16 documented as of this encounter
--- OUTSIDE RECORDS SUMMARY | 2025-07-01 07:47 | XMS_ITS | Encounter Summary ---
Author Organization [facility] Address [address] [place] [address] Care Team Providers Care Occup Ther Name Role Phone Cam Martel MD Primary Care Provider [phone] Encounter Details Date Type Department Care Team (Late Contact Info) Description 04/24/2025 Abstract [facility] Internal Medicine [address] [place] [address] [place] [address] [address] [place] [address] Social History Tobacco Use Types Packs/Day Years Used Date Smoking Tobacco: Former Smokeless Tobacco: Never Alcohol Use Standard Drinks/Week Comments Yes 0 (1 standard drink = 0.6 oz pur e alcohol) occassional Comments No Sex and Gender Information Value Date Recorded Sex Assigned at Not on file Legal Sex Female 4:23 AM CLINICAL DOCUMENTATION SPECIALIST Gender Identity Not on file Sexual Orientation Not on file Occupation Industry Job Start Date Job End Date Not on file Not on file Not on file Not on file documented as of this encounter Plan of Treatment Upcoming Encounters Date Type Department Care Team (Late Contact Info) Description 05/27/2026 3:30 PM CDT Office Visit [facility] Internal Medicine [address] [place] [address] [place] [address] [address] [place] [address] documented as of this encounter Visit Diagnoses Not on filedocumented in this encounter Care Teams Occup Ther Relationship Specialty Start Date End Date Cam Martel MD PCP - General Internal Medicine 04/11/16 documented as of this encounter
--- OUTSIDE RECORDS SUMMARY | 2025-07-01 07:47 | XMS_ITS | Patient Health Record ---
Author Organization [facility] Address [address] [place], [place] [id number] Care Team Providers Care Reproduction Production Manager Name Role Phone Oh Sammie Unavailable Unavailable Reason For Referral No Information Social History Social History Additional Details Category Social Info Options Details Migrated Social History Migrated Social History Alcohol intake : , History of tobacco use : , Smoking Status : Never used tobacco Plan Of Treatment No Information Insurance Providers Payer Name Payer Address Payer Phone Subscriber Number Group Number Insured Name Patient Relationship to Insured Coverage Start Date Coverage End Date [place] [facility] [address] [address] [place], [place] [id number] OLEG WILLETT Self - patient is the insured
--- OUTSIDE RECORDS SUMMARY | 2025-07-01 07:47 | XMS_ITS | Encounter Summary ---
Author Organization [facility] Address 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 Gender Identity Not on file Sexual Orientation Not on file documented as of this encounter Plan of Treatment Upcoming Encounters Date Type Department Care Team (Late st Contact Info) Description 05/27/2026 3:30 PM CDT Office Visit [facility] Internal Medicine [address] [place] [address] [place] [address] [place] [address] documented as of this encounter Visit Diagnoses Diagnosis Abdominal pain, right upper quadrant- Primary documented in this encounter Care Teams Motion Picture Cameraman Relationship Specialty Start Date End Date Cam Martel MD PCP - General Internal Medicine 04/11/16 documented as of this encounter
--- OUTSIDE RECORDS SUMMARY | 2025-07-01 07:47 | XMS_ITS | Encounter Summary ---
Author Organization [facility] Address [address] [place] [address] Care Team Providers Care Merchandise Displayer Name Role Phone Cam Martel MD Primary Care Provider [phone] Encounter Details Date Type Department Care Team (Late st Contact Info) Description 01/04/2005 Outpatient Historical [facility] KapilMarc pires ABDOMINAL PAIN EPIGASTRIC (Primary Dx) Social History Tobacco Use Types Packs/Day Years Used Date Smoking Tobacco: Never Assessed Comments Unknown Sex and Gender Information Value Date Recorded Sex Assigned at Not on file Legal Sex Female 4:23 AM PRESENTATION TEAM MEMBER Gender Identity Not on file Sexual Orientation Not on file documented as of this encounter Plan of Treatment Upcoming Encounters Date Type Department Care Team (Late st Contact Info) Description 05/27/2026 3:30 PM CDT Office Visit [facility] Internal Medicine Dayan Sampson [address] [place] [address] [place] [address] [place] [address] documented as of this encounter Visit Diagnoses Diagnosis Abdominal pain, epigastric- Primary documented in this encounter Care Teams Merchandise Displayer Relationship Specialty Start Date End Date Cam Martel MD PCP - General Internal Medicine 04/11/16 documented as of this encounter
--- OUTSIDE RECORDS SUMMARY | 2025-07-01 07:47 | XMS_ITS | Encounter Summary ---
Author Organization [facility] Healthcare Address [address] [place] [address] Care Team Providers Care Presentation Manager Name Role Phone Cam Martel MD Primary Care Provider Karen Casiano MD Primary Care Provider [phone] Esther Montgomery RN Unavailable Unavailable Cam Martel MD Primary Care Provider Encounter Details Date Type Department Care Team (Late st Contact Info) Description 10/10/[address] 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 Gender Identity Not on file Sexual Orientation Not on file documented as of this encounter Plan of Treatment Not on file documented as of this encounter Visit Diagnoses Not on filedocumented in this encounter Care Teams Presentation Manager Relationship Specialty [place] [address] [facility] [address] [place] [address] PCP - General 10/08/19 02/16/21 Karen Casiano MD [address] [place] [address] PCP - General Internal Medicine 02/17/21 08/31/23 [place] [address] [facility] [address] [place] [phone] PCP - General Internal Medicine 09/01/23 Esther Montgomery, [facility] Breast Risk Program Nurse 11/23/22 documented as of this encounter
--- OUTSIDE RECORDS SUMMARY | 2025-07-01 07:47 | XMS_ITS | Encounter Summary ---
Author Organization [facility] Address 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 Gender Identity Not on file Sexual Orientation Not on file documented as of this encounter Plan of Treatment Upcoming Encounters Date Type Department Care Team (Late st Contact Info) Description 05/27/2026 3:30 PM CDT Office Visit [facility] Internal Medicine Dayan Sampson [address] [facility] [address] [place] [phone] [place] [address] [place] [phone] documented as of this encounter Visit Diagnoses Diagnosis Esophageal reflux- Primary documented in this encounter Care Teams Supply Chain Systems Manager Relationship Specialty Start Date End Date Cam Martel MD PCP - General Internal Medicine 04/11/16 documented as of this encounter
[2025-07-01 07:54] LABS: Hematocrit 39.1 % (35.0-49.0); Hemoglobin 13.1 g/dL (12.0-15.0); Mean Corpuscular HGB Conc 33.5 g/dL (32-36); Mean Corpuscular Hemoglobin 30.6 pg (27.0-31.0); Mean Corpuscular Volume 91.4 fL (78.0-102.0); Platelet Count Result 258 K/mm3 (150-420); Red Blood Count 4.28 M/mm3 (4.20-5.40); White Blood Count 6.0 K/mm3 (4.8-10.8)
[2025-07-01 08:11] LABS: Alanine Aminotransferase 26 U/L (6-35); Albumin Level 4.3 g/dL (3.5-5.1); Alkaline Phosphatase 88 U/L (38-126); Anion Gap 5 mmol/L (4-12); Aspartate Amino Transferase 30 U/L (14-36); Bilirubin,Total 1.3 mg/dL (0.2-1.3); Blood Urea Nitrogen 13 mg/dL (7-17); Calcium 9.0 mg/dL (8.4-10.2); Carbon Dioxide 28 mmol/L (22-30); Chloride 106 mmol/L (98-107); Cholesterol 189 mg/dL (0-200); Estimated Glomerular Filt Rate > 60; Glucose 105 mg/dL (65-110); HDL Direct 40 mg/dL; Osmolality Calculated 288 mOsm/kg (285-295); Potassium 4.1 mmol/L (3.4-5.0); Sodium 139 mmol/L (137-145); Total Protein 6.7 g/dL (6.3-8.2); Triglycerides 195 mg/dL (<150)
[2025-07-01 08:22] LABS: Hemoglobin A1C 5.2 % (<5.7)
[2025-07-01 08:40] LABS: Thyroid Stimulating Hormone 1.450 uIU/mL (0.465-4.680)
== END 2025-07-01 07:42 | disposition home or self-care (01) ==
DX: Z00.00 Encounter for general adult medical examination without abnormal findings (principal); F41.1 Generalized anxiety disorder
CPT/HCPCS: 36415; 80053; 80061; 83036; 84443; 85027